=== PATIENT | male | born 1955 | race Caucasian/White ===

== ENCOUNTER 2017-09-10 22:37 | Emergency (ER) | payer OTHER, BC ==
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
[2017-09-10] MEDS ORDERED: TYLENOL EXTRA STRENGTH 500 MG PO STA (23:38)
[2017-09-10] MEDS ORDERED: TYLENOL 325 MG ONE (23:44)
[2017-09-11 01:19] VITALS: BP 177/87; PULSE 76
[2017-09-11] MEDS ORDERED: Zofran 4 MG/2 ML VIAL IV ONE (01:48)
[2017-09-11] MEDS ORDERED: Sodium Chloride 0.9% 1000 ML 1,000 ML IV STA (01:48)
[2017-09-11] MEDS ORDERED: Zofran 4 MG/2 ML VIAL ONE (02:00)
[2017-09-11] MEDS ORDERED: Sodium Chloride 0.9% 1000 ML 1,000 ML ONE (02:00)
[2017-09-11 02:25] LABS: Granulocyte Absolute (ANC) 12.42 (1.4-6.9); Hematocrit 42.3 % (42-50); Hemoglobin 14.1 gm/dl (12.5-18.0); Mean Cell Volume 87.6 fl (78-100); Mean Corpuscular Hemoglobin 29.2 pg (26-32); Mean Corpuscular Hgb Concent. 33.3 g/dl (32-36); Mean Platelet Volume 12.6 fl (6-9.5); Platelet Count 157 K/mm3 (150-450); Red Blood Count 4.83 M/mm3 (4.1-5.6); Red Cell Distribution Width 13.7 % (11.5-14.0); White Blood Count 16.5 K/mm3 (4.0-10.5)
[2017-09-11 02:31] LABS: ANION GAP 15.8 MEQ/L (5-15); Calcium 9.2 mg/dL (8.5-10.1); Carbon Dioxide 27.4 mEq/L (21-32); Creatinine 1 1.38 mg/dl (0.55-1.30); Potassium 3.4 mEq/L (3.5-5.1)
[2017-09-11 04:14] LABS: Eosinophil 1 % (0.00-3.0); Lymphocytes 21 % (24-44); Monocyte 9 % (0.0-12.0); Neutrophils 69 % (36.-66.); Platelet Estimate NORMAL (NORMAL); Total Cells Counted 100
[2017-09-11 04:56] VITALS: O2SAT 93
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
== END 2017-09-11 04:00 | disposition home or self-care (01) ==
LOC: ED 22:37
DX: H53.8 Other visual disturbances (principal); H33.8 Other retinal detachments; S06.0X9A Concussion with loss of consciousness of unspecified duration, initial encounter; S02.2XXA Fracture of nasal bones, initial encounter for closed fracture; M50.30 Other cervical disc degeneration, unspecified cervical region; Y09 Assault by unspecified means
CPT/HCPCS: 36000; 36415; 70450; 70486; 72125; 73030; 80048; 85025; 96360; 99283; 99284; J2405; A9270-GY